=== PATIENT | male | born 1985 | race Caucasian/White ===

== ENCOUNTER 2019-06-14 21:20 | Emergency (ER) | payer OTHER ==
[~2019-06-14] VITALS: Ht 195.5 cm; Wt 185.1 kg
[2019-06-14] MEDS ORDERED: AUGMENTIN 875875 MG PO (22:36)
[2019-06-16 05:06] LABS: HEPATITIS B SURFACE AG Negative (Negative); HEPATITIS C AB <0.1 (0.0-0.9)
== END 2019-06-14 22:55 | disposition home or self-care (01) ==
LOC: ED 21:20
PROVIDERS: Physician Assistant
DX: S61.254A Open bite of right ring finger without damage to nail, initial encounter (principal); X83.8XXA Intentional self-harm by other specified means, initial encounter; Y93.89 Activity, other specified; Y92.89 Other specified places as the place of occurrence of the external cause; Y99.8 Other external cause status